=== PATIENT | male | born 1970 | race African-American/Black ===

== ENCOUNTER 2023-03-31 23:21 | Emergency (ER) | payer MEDICAID ==
[~2023-03-31] VITALS: Ht 180.3 cm; Wt 79.0 kg
[2023-03-31 23:25] VITALS: O2SAT 98
[2023-04-01] MEDS ORDERED: HYDROCODONE/ACETAMINOPHEN 10/325MG TABLET PO ONE (00:15)
[2023-04-01] MEDS ORDERED: CYCL5TAB MT (02:41)
[2023-04-01] MEDS ORDERED: IBUP-2030 MT (02:41)
[2023-04-01] MEDS ORDERED: KETOROLAC 60MG/2ML VIAL IM ONE (02:45)
[2023-04-01 05:20] VITALS: BP 118/84; PULSE 82; RESP 16; TEMP 98.2
== END 2023-04-01 05:27 | disposition home or self-care (01) ==
LOC: ER 04-01 05:27
DX: M54.2 Cervicalgia (principal); M25.511 Pain in right shoulder; E11.9 Type 2 diabetes mellitus without complications; V49.9XXA Car occupant (driver) (passenger) injured in unspecified traffic accident, initial encounter; Y93.89 Activity, other specified; Y92.89 Other specified places as the place of occurrence of the external cause; Y99.8 Other external cause status
CPT/HCPCS: 99285; 73030; 70450; 72125; Z7610 ×2